=== PATIENT | male | born 1965 | race African-American/Black ===

== ENCOUNTER 2023-04-23 09:11 | Emergency (ER) | payer BC ==
[~2023-04-23] VITALS: Ht 175.3 cm; Wt 84.8 kg
[2023-04-23] MEDS ORDERED: KETOROLAC TROMETHAMINE INJ 30 MG/ML VIAL IM ONE (10:30)
--- NOTE | 2023-04-23 11:00 | NUR ---
BIBS C/O RIGHT KNEE PAIN SINCE YESTERDAY. DENIES TRAUMA TO AREA. AMBULATORY, PLACED IN BED.
[2023-04-23 11:01] LABS: CREATININE 0.9 mg/dL (0.6-1.3); POTASSIUM 3.8 mmol/L (3.5-5.1)
[2023-04-23] MEDS ORDERED: KETOROLAC TROMETHAMINE INJ 30 MG/ML VIAL ONE (11:29)
[2023-04-23 11:37] LABS: BASOPHILS % (AUTO) 0.1 % (0.0-2.0); EOSINOPHILS % (AUTO) 0.1 % (0.0-6.0); HEMATOCRIT 37 % (39-51); HEMOGLOBIN 12.8 g/dL (13.5-17.5); LYMPHOCYTES # (AUTO) 0.7 K/uL (0.8-4.8); LYMPHOCYTES % (AUTO) 6.1 % (20.0-44.0); MEAN CORPUSCULAR HGB CONC 34 g/dl (31.0-36.0); MEAN CORPUSCULAR VOLUME 90 fL (80-96); MONOCYTES # (AUTO) 0.7 K/uL (0.1-1.30); MONOCYTES % (AUTO) 6.3 % (2.0-12.0); NEUTROPHILS # (AUTO) 9.5 K/uL (1.8-8.9); NEUTROPHILS % (AUTO) 87.4 % (43.0-81.0); PLATELET COUNT (AUTO) 108 K/uL (150-450); RED BLOOD CELL COUNT(AUTO) 4.14 MIL/uL (4.5-6.0); WHITE BLOOD COUNT (AUTO) 10.8 K/uL (4.3-11.0)
[2023-04-23] MEDS ORDERED: NAPR-1009 PO (12:38)
--- NOTE | 2023-04-23 13:00 | NUR ---
Patient discharged to home in stable condition. Written and verbal after care instructions given. Patient verbalizes understanding of instruction.
[2023-04-23 13:23] VITALS: BP 135/89; TEMP 98.4
== END 2023-04-23 13:00 | disposition home or self-care (01) ==
LOC: ER 09:17
DX: M25.461 Effusion, right knee (principal); M25.561 Pain in right knee
CPT/HCPCS: 99284; 96372; 73564; 85025; 80048; 85652; 84550; 36415; J1885